=== PATIENT | female | born 1975 | race Hispanic/Latino ===

== ENCOUNTER 2025-08-12 10:50 | Outpatient (CLI) | payer OTHER, SELFPAY ==
--- NOTE | ~2025-08-12 | US_ITS ---
EXAMINATION: US right upper quadrant DATE: 08/12/2025 11:40 INDICATION: Right upper quadrant abdominal pain TECHNIQUE: Multiple grayscale and Doppler ultrasound images of the abdomen were obtained. COMPARISON: None FINDINGS: The pancreatic head and body are normal in appearance. The pancreatic tail is not visualized. Liver has normal echogenicity and contour, with a smooth surface. No liver lesion identified. No intrahepatic biliary duct dilation suspected. Portal venous flow was seen in the hepatopetal, normal direction and has normal Doppler waveform. The gallbladder is normal in appearance. There is no cholelithiasis. The common bile duct measures 3-4 mm, which is normal. Sonographic Muñoz sign was reported as negative by the public relations studies director.Visualized portion of the proximal abdominal aorta and inferior vena cava are normal. Right kidney measures 9.6 x 3.3 cm with normal contour and echogenicity and no hydronephrosis. IMPRESSION: 1. Normal right upper quadrant ultrasound. Reviewed, dictated and finalized at location A. [facility] [employer]
== END 2025-08-12 10:51 | disposition home or self-care (01) ==
LOC: MICIMG 10:53
PROVIDERS: PCP Physician Assistant; Visit Provider Physician Assistant
DX: R10.11 Right upper quadrant pain (principal)
CPT/HCPCS: 76705